=== PATIENT | female | born 1985 | race Caucasian/White ===

== ENCOUNTER 2023-06-25 12:26 | Outpatient (CLI) | payer MEDICAID | END 2023-06-25 23:59 | disposition home or self-care (01) | LOC: VAS 12:26 | PROVIDERS: ATTEND Family Medicine | DX: R20.0 Anesthesia of skin (principal) | CPT/HCPCS: 93925; 93970 ==

== ENCOUNTER 2023-11-29 12:01 | Outpatient (CLI) | payer MEDICAID | END 2023-11-29 23:59 | disposition home or self-care (01) | LOC: RAD 12:01 | PROVIDERS: ATTEND Nurse Practitioner Family | DX: R20.0 Anesthesia of skin (principal) | CPT/HCPCS: 73630 ==